=== PATIENT | male | born 1980 ===

== ENCOUNTER 2023-11-20 12:40 | Outpatient (CLI) | payer OTHER ==
--- NOTE | 2023-11-20 13:19 | CARDIAC PROCEDURE NOTE ---
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 Significant Medical History: Juan is referred for a treadmill stress test today as part of an evaluation for a few months' history of intermittent palpitations and very brief episodes (ie seconds) of chest discomfort, mostly in his upper chest but with 1 episode where there was a "spiderwebbing feeling" involving his left neck and upper left arm. The episodes have occurred randomly, not in association with workouts that he continues, which involve interval running on a treadmill and some weightlifting. The episodes are not associated with dyspnea/restriction of breathing, nausea or diaphoresis. Additional evaluation thus far has included an EKG, showing modest first-degree AV block, as well as a 13-day Zio patch monitor. The latter showed normal heart rate variation with rare supraventricular ectopics and a few runs of nonsustained SVT but no PVCs or other high risk findings. He is scheduled to undergo a full diagnostic echocardiogram in the next few weeks. He remains on limited duty status pending completion of his full medical evaluation. Cardiac Risk Factors: Juan reportst that his father had premature CAD (with stent at age 47 and AAA at age ~60); he has been told of elevated cholesterol levels (not treated) and BP was elevated (with lisinopril treatment for one year prior to BP normalization); no history of diabetes nor tobacco smoking ever. Type of Stress Test: Exercise Treadmill Test (ETT) Procedure: -Exercise Treadmill Test- After signing informed consent, the patient performed treadmill exercise using a Jabier protocol. The patient exercised for 8 minutes 49 seconds and achieved a peak heart rate of 188 (105 percent predicted maximum heart rate for age), and an estimated workload of 11 METS. The test was terminated due to achieving target heart rate, with some leg fatigue. He reported only mild dyspnea and may have been able to continue longer, to a supraphysiologic heart rate. Resting heart rate: 83 Peak heart rate: 188 Normal response to exercise. Resting BP: 115/84 Peak BP: 161/87 Normal BP response to exercise. Room air oxygen saturation ranged from 95-98%. Rhythm during exercise: Sinus rhythm throughout without ectopy. Symptoms: He denied any chest pressure/discomfort/pain whatsoever. EKG at rest showed normal sinus rhythm with scattered ST elevation, most suggest juventino of normal variant early repolarization pattern, with mild first degree AV block (CT=0.23 sec). EKG at peak stress showed no ischemia by EKG criteria. In Recovery HR and BP rapidly/normally decreased towards resting levels, remaining modestly elevated at 4:33 (HR 104, BP 129/83). No imaging was ordered with this stress test. ITim MD, was present throughout this treadmill stress study and supervised it in its entirety. Summary: 1) Exercise tolerance probably mildly decreased for age and sex as evidenced by ALEXANDRA of 18%; note that he could have exercised a bit longer, but with supraphysiologic HR increasing the risk of false positive ST depression. 2) Abnormal resting EKG, but with interpretable ST segments. 3) Adequate level of exercise was achieved on this treadmill stress test. 4) Normal resting BP and BP response to exercise. 5) No ischemic changes by EKG criteria were seen at peak stress. 6) No imaging was ordered with this test. Conclusions and Recommendations: 1) These are reassuring ETT results with normal hemodynamic response, near average exercise time and no symptom or EKG evidence of inducible ischemia. 2) The CT interval appeared to normalize with HR >110, suggesting the presence of a significant parasympathetic contribution to its prolongation at rest. 3) We reviewed that with his personal history of hyperlipidemia and his father with premature CAD there should be a low threshold for his initiating a statin for presumed primary prevention. It would also be reasonable for him to undergo U/S screening of his abdominal aorta in the next several years.
== END 2023-11-20 12:41 | disposition home or self-care (01) ==
LOC: DI 12:40
PROVIDERS: ATTEND Student in an Organized Health Care Education/Training Program
DX: R00.2 Palpitations (principal); Z82.49 Family history of ischemic heart disease and other diseases of the circulatory system; E78.00 Pure hypercholesterolemia, unspecified
CPT/HCPCS: 93017

== ENCOUNTER 2024-01-02 08:27 | Outpatient (CLI) | payer OTHER | END 2024-01-02 08:28 | disposition home or self-care (01) | LOC: DI 08:27 | PROVIDERS: ATTEND Student in an Organized Health Care Education/Training Program | DX: R00.2 Palpitations (principal) | CPT/HCPCS: 93307 ==